=== PATIENT | female | born 1965 | race Caucasian/White ===

== ENCOUNTER 2018-09-29 04:23 | Emergency (ER) | payer OTHER ==
[~2018-09-29] VITALS: Ht 162.6 cm; Wt 90.9 kg
[~2018-09-29 04:23] MED LIST: BACTRIM DS 8001 TAB PO; BIOTIN1 MG PO; CALCIUM1 CAP PO; CEPHALEXIN500 M1 PO; DUO-KAPS1 CAP PO; GINKO BILOBA60 MG PO; NORCO 325 MG-51 TAB PO; PRILOSEC 20MG20 MG PO; PRINIVIL40 MG PO; PROCARDIA XL 3030 MG PO; PROZAC40 MG PO; TOPROL XL 25MG25 MG PO; VITAMIN B1225 MCG PO
[2018-09-29 04:38] VITALS: TEMP 98.1
[2018-09-29 04:58] LABS: BASO % 0.8 % (0.0-2.0); EOS # 0.1 (0.0-0.7); EOS % 1.6 % (0-4.0); GRAN # 1.9 (1.4-6.5); GRAN % 38.5 % (42.2-75.2); HEMATOCRIT 47.9 % (37.0-47.0); HEMOGLOBIN 16.3 g/dl (12.5-16.0); LYMPH # 2.4 (1.2-3.4); LYMPH % 47.4 % (20.0-51.0); MEAN CELL VOLUME 101 fl (80.0-100.0); MEAN CORPUSCULAR HEMOGLOBIN 34 pg (27.0-31.0); MEAN CORPUSCULAR HGB CONC 34 g/dl (33.0-37.0); MEAN PLATELET VOLUME 9.5 fl (7.4-10.4); MONO # 0.6 (0.1-0.6); MONO % 11.5 % (1.7-9.3); PLATELET COUNT 298 K/mm3 (130-400); RED BLOOD COUNT 4.75 M/mm3 (4.10-5.30); REDCELL DISTRIBUTION WIDTH-CV 12.4 % (11.5-14.5)
[2018-09-29 05:11] LABS: ALANINE AMINOTRANSFERASE 61 U/L (9-52); ALBUMIN 4.4 gm/dL (3.5-5.0); ALKALINE PHOSPHATASE 76 U/L (50-136); ANION GAP 10 mmol/L (7-16); AST,SGOT 56 U/L (15-37); BILIRUBIN,TOTAL 0.5 mg/dL (0.0-1.0); BLOOD UREA NITROGEN 6 mg/dL (7-17); C-REACTIVE PROTEIN 0.6 mg/dL (0.0-0.9); CALCIUM 9.5 mg/dL (8.4-10.2); CARBON DIOXIDE 26 mmol/L (22-30); CHLORIDE 101 mmol/L (98-107); CREATININE, serum 0.67 mg/dL (0.52-1.25); GLUCOSE 101 mg/dL (74-106); LIPASE 69 U/L (23-300); POTASSIUM 4.4 mmol/L (3.4-5.0); SODIUM 137 mmol/L (137-145); TOTAL PROTEIN 7.8 gm/dL (6.4-8.2)
[2018-09-29 05:20] LABS: TROPONIN-I < 0.012 ng/mL (0.000-0.034)
[2018-09-29 05:50] LABS: COLLECTION METHOD CLEAN CATCH
[2018-09-29 05:59] LABS: MUCOUS Present /lpf; PH 5 (5-8); URINE APPEARANCE Clear; URINE BACTERIA Occasional /hpf; URINE BILIRUBIN Negative (NEGATIVE); URINE BLOOD Negative (NEGATIVE); URINE COLOR Yellow; URINE GLUCOSE Negative (NEGATIVE); URINE KETONE Negative (NEGATIVE); URINE LEUKOCYTE ESTERASE Negative (NEGATIVE); URINE NITRATE Negative (NEGATIVE); URINE PROTEIN(semi-quant) Negative (NEGATIVE); URINE RBC 0-2 /hpf; URINE UROBILINOGEN Negative (NEGATIVE)
[2018-09-29] MEDS ORDERED: NORCO 325 MG-51 TAB PO (06:25)
[2018-09-29 06:32] VITALS: BP 116/75; PULSE 65
== END 2018-09-29 06:44 | disposition home or self-care (01) ==
LOC: COL.ER 04:23
PROVIDERS: Emergency Medicine
DX: R07.81 Pleurodynia (principal); R10.11 Right upper quadrant pain; I10 Essential (primary) hypertension; F32.9 Major depressive disorder, single episode, unspecified; E66.9 Obesity, unspecified; F17.210 Nicotine dependence, cigarettes, uncomplicated; Z90.710 Acquired absence of both cervix and uterus
CPT/HCPCS: J1885; J2270

== ENCOUNTER → 2018-11-27 | Outpatient (CLI) | payer OTHER | LOC: MC.RAD 08:57 | DX: Z12.31 Encounter for screening mammogram for malignant neoplasm of breast (principal); N64.89 Other specified disorders of breast ==

== ENCOUNTER → 2018-11-30 | Outpatient (CLI) | payer OTHER | LOC: MC.RAD 08:30 | DX: N64.89 Other specified disorders of breast (principal) ==

== ENCOUNTER → 2019-08-30 | Outpatient (CLI) | payer BC | LOC: MC.RAD 13:00 | DX: R92.2 Inconclusive mammogram (principal) | CPT/HCPCS: G0279 ==

== ENCOUNTER → 2020-12-12 | Outpatient (CLI) | payer OTHER | LOC: ZCOL.LAB 10:59 | DX: R60.0 Localized edema (principal) ==

== ENCOUNTER → 2022-07-15 | Outpatient (CLI) | payer BC | LOC: MC.RAD 06:58 | DX: Z12.31 Encounter for screening mammogram for malignant neoplasm of breast (principal) ==